=== PATIENT | male | born 1970 | race Caucasian/White ===

== ENCOUNTER 2024-07-05 13:44 | Observation (INO) | payer OTHER ==
--- NOTE | 2024-07-05 14:21 | ED ---
General Adult HPI - General Chief complaint: Chest Pain Stated complaint: Chest pain Time Seen by Provider: 07/05/24 13:51 Source: patient, RN notes reviewed Mode of arrival: ambulatory Limitations: no limitations - History of Present Illness Initial comments: Patient is a 54-year-old male present to the emergency department with concerns with chest discomfort. Onset of symptoms was prior to arrival. Patient was at [place]. Patient has been there for 3 days now secondary to crack cocaine use. No history of previous chest discomfort before. Discomfort was severe and felt somewhat sharp. There was radiation to the left arm. Discomfort is now minimal. Patient also had diffuse paresthesias. Patient did feel somewhat short of breath. No nausea. No history of similar symptoms previously. - Related Data Home Medications Medication Instructions Recorded Confirmed Aspirin EC [Ecotrin] 325 mg PO ONCE 07/05/24 07/05/24 Atorvastatin [Lipitor] 20 mg PO HS 07/05/24 07/05/24 Allergies Allergy/AdvReac Type Severity Reaction Status Date / Time bee venom protein (honey bee) Allergy Rash/Hives Verified 07/05/24 14:48 Review of Systems ROS Statement: Those systems with pertinent positive or pertinent negative responses have been documented in the HPI. ROS Other: All systems not noted in ROS Statement are negative. Constitutional: Denies: fever Eyes: Denies: eye pain ENT: Denies: ear pain Respiratory: Reports: as per HPI Cardiovascular: Reports: as per HPI, chest pain Gastrointestinal: Denies: abdominal pain Neurological: Denies: weakness Past Medical History Additional Past Medical History / Comment(s): High Cholestrol. Bleeding GI ulcer History of Any Multi-Drug Resistant Organisms: None Reported Additional Past Surgical History / Comment(s): plastic surgery to face Past Psychological History: No Psychological Hx Reported Smoking Status: Current every day smoker Past Alcohol Use History: None Reported Past Drug Use History: Cocaine, Marijuana General Exam Limitations: no limitations General appearance: alert, in no apparent distress Head exam: Present: normocephalic Eye exam: Present: normal appearance Neck exam: Present: normal inspection Respiratory exam: Present: normal lung sounds bilaterally. Absent: chest wall tenderness Cardiovascular Exam: Present: regular rate, normal rhythm, normal heart sounds Expanded Peripheral pulses: 2+: Radial (R), Radial (L), Posterior Tibialis (R), Posterior Tibialis (L) GI/Abdominal exam: Present: soft. Absent: tenderness Extremities exam: Present: normal inspection. Absent: pedal edema, calf te nderness Neurological exam: Present: alert Psychiatric exam: Present: normal affect, normal mood Skin exam: Present: normal color Course Vital Signs 07/05/24 13:45 Temperature 97.8 F Pulse Rate 84 Respiratory 18 Rate Blood Pressure 130/87 O2 Sat by Pulse 98 Oximetry EKG Findings - EKG Results: EKG: interpreted by ERMD, sinus rhythm, normal axis, normal QRS, normal ST/T Medical Decision Making - Medical Decision Making Was pt. sent in by a medical professional or institution (, PA, WOOD PLANER, urgent care, hospital, or skilled nursing...) When possible be specific @ -[facility] Did you speak to anyone other than the patient for history (EMS, parent, family, police, friend...)? What history was obtained from this source @ -No Did you review nursing and triage notes (agree or disagree)? Why? @ -I reviewed and agree with nursing and triage notes Were old charts reviewed (outside hosp., previous admission, EMS record, old EKG, old radiological studies, urgent care reports/EKG's, skilled nursing records)? Report findings @ -No old charts were reviewed Differential Diagnosis (chest pain, altered mental status, abdominal pain women, abdominal pain men, vaginal bleeding, weakness, fever, dyspnea, syncope, headache, dizziness, GI bleed, back pain, seizure, CVA, palpatations, mental health, musculoskeletal)? @ -Differential Chest Pain: Stable Angina, Unstable Angina, STEMI, NSTEMI Aortic Dissection, Pneumothorax, Musculoskeletal, Esophageal Spasm GERD, Cholecystitis, Pancreatitis, Zoster, this is not meant to be an all-inclusive list. EKG interpreted by me (3pts min.). @ -As above X-rays interpreted by me (1pt min.). @ -Chest x-ray with nonspecific findings CT interpreted by me (1pt min.). @ -None done U/S interpreted by me (1pt. min.). @ -None done What testing was considered but not performed or refused? (CT, X-rays, U/S, labs)? Why? @ -None What meds were considered but not given or refused? Why? @ -None Did you discuss the management of the patient with other professionals (professionals i.e. , PA, WOOD PLANER, lab, RT, psych nurse, social science analyst, afterschool, teacher, deputy juvenile officer, child support case officer)? Give summary @ -Case was discussed with Dr. Farias who will admit covering hospital call Was smoking cessation discussed for >3mins.? @ -No Was critical care preformed (if so, how long)? @ -No Were there social determinants of health that impacted care today? How? (Homele ssness, low income, unemployed, alcoholism, drug addiction, transportation, low edu. Level, literacy, decrease access to med. care, long-term, rehab)? @ -No Was there de-escalation of care discussed even if they declined (Discuss DNR or withdrawal of care, Hospice)? DNR status @ -No What co-morbidities impacted this encounter? (DM, HTN, Smoking, COPD, CAD, Cancer, CVA, ARF, Chemo, Hep., AIDS, mental health diagnosis, sleep apnea, morbid obesity)? @ -Family history of brothers with heart disease. Cocaine use Was patient admitted / discharged? Hospital course, mention meds given and route, prescriptions, significant lab abnormalities, going to OR and other pertinent info. @ -Patient presents with chest discomfort, initial evaluation unremarkable. Patient will be admitted with further testing and cardiac consult. Patient updated. Admission orders written. Undiagnosed new problem with uncertain prognosis? @ -No Drug Therapy requiring intensive monitoring for toxicity (Heparin, Nitro, I nsulin, Cardizem)? @ -No Were any procedures done? @ -No Diagnosis/symptom? @ -Chest pain Acute, or Chronic, or Acute on Chronic? @ -Acute Uncomplicated (without systemic symptoms) or Complicated (systemic symptoms)? @ -Default Side effects of treatment? @ -No Exacerbation, Progression, or Severe Exacerbation? @ -No Poses a threat to life or bodily function? How? (Chest pain, [place], [place], pneumonia, PE, COPD, DKA, ARF, appy, cholecystitis, CVA, Diverticulitis, Homicidal, Suicidal, threat to staff... and all critical care pts) @ -Threat to cardiac function - Lab Data Result diagrams: 07/05/24 14:35 07/05/24 14:35 Lab Results 07/05/24 07/05/24 07/05/24 Range/Units 14:35 14:35 14:35 WBC 8.08 (4.50-10.00) 10*3/uL RBC 4.72 (4.40-5.60) 10*6/uL Hgb 14.7 (13.0-17.0) g/dL Hct 42.3 (39.6-50.0) % MCV 89.6 (80.0-97.0) fL MCH 31.1 (27.0-32.0) pg MCHC 34.8 (32.0-37.0) g/dL Plt Count 258 (140-440) 10*3/uL MPV 9.6 (9.5-12.2) fL Immature Gran % (Auto) 0.5 % Neutrophils % 74.0 % Lymphocytes % 16.5 % Monocytes % 6.8 % Eosinophils % 1.2 % Basophils % 1.0 % Immature Gran # 0.04 (0.00-0.04) 10*3/uL Neutrophils # 5.98 (1.80-7.70) 10*3/uL Lymphocytes # 1.33 (0.90-5.00) 10*3/uL Monocytes # 0.55 (0.20-1.00) 10*3/uL Eosinophils # 0.10 (0.04-0.35) 10*3/uL Basophils # 0.08 (0.00-0.10) 10*3/uL PT 10.2 (10.0-12.5) sec INR 0.9 (<1.2) APTT 24.7 (22.0-30.0) sec D-Dimer 0.29 (<0.60) mg/L FEU Sodium 139 (137-145) mmol/L Potassium 4.1 (3.5-5.1) mmol/L Chloride 105 (98-107) mmol/L Carbon Dioxide 27 (22-30) mmol/L Anion Gap 7 mmol/L BUN 11 (9-20) mg/dL Creatinine 0.81 (0.66-1.25) mg/dL Est GFR (CKD-EPI)AfAm >90 (>60 ml/min/1.73 sqM) Est GFR (CKD-EPI)NonAf >90 (>60 ml/min/1.73 sqM) Glucose 93 (74-99) mg/dL Calcium 9.8 (8.4-10.2) mg/dL Magnesium 2.0 (1.6-2.3) mg/dL Total Bilirubin 0.4 (0.2-1.3) mg/dL AST 17 (17-59) U/L ALT 11 (4-49) U/L Alkaline Phosphatase 49 (38-126) U/L Troponin I (0.000-0.034) ng/mL Total Protein 6.1 L (6.3-8.2) g/dL Albumin 3.6 (3.5-5.0) g/dL Amylase 38 (30-110) U/L Lipase 167 (23-300) U/L / Range/Units 14:35 WBC (4.50-10.00) 10*3/uL RBC (4.40-5.60) 10*6/uL Hgb (13.0-17.0) g/dL Hct (39.6-50.0) % MCV (80.0-97.0) fL MCH (27.0-32.0) pg MCHC (32.0-37.0) g/dL Plt Count (140-440) 10*3/uL MPV (9.5-12.2) fL Immature Gran % (Auto) % Neutrophils % % Lymphocytes % % Monocytes % % Eosinophils % % Basophils % % Immature Gran # (0.00-0.04) 10*3/uL Neutrophils # (1.80-7.70) 10*3/uL Lymphocytes # (0.90-5.00) 10*3/uL Monocytes # (0.20-1.00) 10*3/uL Eosinophils # (0.04-0.35) 10*3/uL Basophils # (0.00-0.10) 10*3/uL PT (10.0-12.5) sec INR (<1.2) APTT (22.0-30.0) sec D-Dimer (<0.60) mg/L FEU Sodium (137-145) mmol/L Potassium (3.5-5.1) mmol/L Chloride (98-107) mmol/L Carbon Dioxide (22-30) mmol/L Anion Gap mmol/L BUN (9-20) mg/dL Creatinine (0.66-1.25) mg/dL Est GFR (CKD-EPI)AfAm (>60 ml/min/1.73 sqM) Est GFR (CKD-EPI)NonAf (>60 ml/min/1.73 sqM) Glucose (74-99) mg/dL Calcium (8.4-10.2) mg/dL Magnesium (1.6-2.3) mg/dL Total Bilirubin (0.2-1.3) mg/dL AST (17-59) U/L ALT (4-49) U/L Alkaline Phosphatase (38-126) U/L Troponin I <0.012 (0.000-0.034) ng/mL Total Protein (6.3-8.2) g/dL Albumin (3.5-5.0) g/dL Amylase (30-110) U/L Lipase (23-300) U/L Disposition Clinical Impression: Chest pain Disposition: ADMITTED IP TO THIS [facility] Is patient prescribed a controlled substance at d/c from ED?: No Referrals: None,Stated [Primary Care Provider] - 1-2 days Time of Disposition: 17:08
[2024-07-05] MEDS: ASPIRIN 81 MG PO STA (14:39)
[2024-07-05] MEDS: NITROGLYCERIN OINT 1 INCH/GM PACKET TOPICAL STA (14:39)
[2024-07-05 14:50] LABS: Basophils # (A) 0.08 10*3/uL (0.00-0.10); Eosinophils % (A) 1.2 %; HCT 42.3 % (39.6-50.0); HGB 14.7 g/dL (13.0-17.0); Lymphocytes # (A) 1.33 10*3/uL (0.90-5.00); Lymphocytes % (A) 16.5 %; MCH 31.1 pg (27.0-32.0); MCHC 34.8 g/dL (32.0-37.0); MCV 89.6 fL (80.0-97.0); Mean Platelet Volume 9.6 fL (9.5-12.2); Monocytes # (A) 0.55 10*3/uL (0.20-1.00); Monocytes % (A) 6.8 %; Neutrophils # (A) 5.98 10*3/uL (1.80-7.70); Platelet Count 258 10*3/uL (140-440); RBC 4.72 10*6/uL (4.40-5.60); RDW 12.1 % (11.5-14.5); WBC 8.08 10*3/uL (4.50-10.00)
[2024-07-05 15:05] LABS: ALT 11 U/L (4-49); African American GFR (CKD) >90 (>60 ml/min/1.73 sqM); Albumin 3.6 g/dL (3.5-5.0); Amylase 38 U/L (30-110); Anion Gap 7 mmol/L; Blood Urea Nitrogen 11 mg/dL (9-20); Calcium 9.8 mg/dL (8.4-10.2); Carbon Dioxide 27 mmol/L (22-30); Chloride 105 mmol/L (98-107); Glucose 93 mg/dL (74-99); Lipase 167 U/L (23-300); Non-African American GFR(CKD) >90 (>60 ml/min/1.73 sqM); Sodium 139 mmol/L (137-145); Total Bilirubin 0.4 mg/dL (0.2-1.3); Total Protein 6.1 g/dL (6.3-8.2)
[2024-07-05 15:08] LABS: AST 17 U/L (17-59); Potassium 4.1 mmol/L (3.5-5.1)
[2024-07-05 15:09] LABS: Alkaline Phosphatase 49 U/L (38-126)
[2024-07-05 15:11] LABS: INR 0.9 (<1.2); Partial Thromboplastin Time 24.7 sec (22.0-30.0); Prothrombin Time 10.2 sec (10.0-12.5)
--- NOTE | 2024-07-05 15:12 | XR ---
EXAMINATION TYPE: XR chest 2V DATE OF EXAM: 07/05/2024 3:08 PM COMPARISON: None CLINICAL INDICATION: Male, 54 years old with history of Chest Pain, , TECHNIQUE: Frontal and lateral views FINDINGS: The heart is normal size. Aorta and pulmonary vascularity are normal. Mild patchy lower lung densities. Mild hyperinflation. No pleural effusion. IMPRESSION: COPD. Mild patchy atelectasis versus minimal early infiltrates at the lower lungs. [facility], Workstation: [facility], 07/05/2024 3:09 PM
[2024-07-05] MEDS ORDERED: NITROGLYCERIN SL TABS 0.4 MG TAB SUBLINGUAL PRN (17:08)
[2024-07-05] MEDS: NITROGLYCERIN OINT 1 INCH/GM PACKET TOPICAL SCH (19:06)
[2024-07-05] MEDS: ATORVASTATIN 20 MG TAB PO SCH (20:17)
[2024-07-06 01:40] LABS: Amphetamine Screen,Urine Not Detected (NotDetected); Barbiturate Screen,Urine Not Detected (NotDetected); Benzodiazepines Screen,Urine Not Detected (NotDetected); Cocaine Screen,Urine Detected (NotDetected); Methadone Screen, Urine Not Detected (NotDetected); Opiate Screen,Urine Not Detected (NotDetected); Oxycodone Screen, Urine Not Detected (NotDetected); Phencyclidine Screen,Urine Not Detected (NotDetected); Tricyclic Antidepressant,Urine Not Detected (NotDetected); Urn Cannabinoid Scrn Not Detected (NotDetected)
--- NOTE | 2024-07-06 02:48 | HP ---
HISTORY AND PHYSICAL CHIEF COMPLAINT: Chest pain. HISTORY OF PRESENT ILLNESS: This 54-year-old gentleman with a past medical history of multiple medical problems including cocaine addiction, obesity. The patient is receiving rehab in , is complaining of left-sided chest pain, which is radiating to the left arm. The patient reports the pain as sharp in character. The initial workup was negative, but however, the patient had history of myocardial infarction in brother at age of 50. There is no history of fever, rigors, chills at this time. PAST MEDICAL HISTORY: History of hyperlipidemia, bleeding, gastric ulcer. Rest of the history and chart is also reviewed. HOME MEDICATIONS: Ecotrin, Lipitor. ALLERGIES: Bee venom. FAMILY HISTORY: As mentioned earlier. SOCIAL HISTORY: Cocaine, marijuana smoking. REVIEW OF SYSTEMS: A 14-point review of systems is negative except as mentioned earlier. PHYSICAL EXAMINATION: VITAL SIGNS: Pulse is 84, blood pressure 138/70, respirations 18. HEENT: Conjunctivae normal. NECK: No jugular venous distention. CARDIOVASCULAR: S1 and S2, muffled. ABDOMEN: Soft, nontender. EXTREMITIES: Legs, no edema, no cyanosis. NERVOUS SYSTEM: No focal deficits. LABORATORY DATA: Labs are reviewed. EKG shows no acute changes. ASSESSMENT: 1. Chest pain, possible unstable angina. 2. Positive cocaine. 3. Hyperlipidemia. 4. History of bleeding GI. 5. History of nicotine dependence. 6. Family history of premature coronary artery disease. RECOMMENDATION: This 54-year-old gentleman presented with multiple complex medical issues. We will monitor the patient closely. Continue the current and treatment, otherwise continue with antiplatelet agents. I would also recommend small dose of beta blockers and closely follow with Cardiology. The patient will need further testing including stress test. Prognosis guarded. Further recommendations to follow. Continue with a substance abuse rehab. MMODL / IJN: [id number] / MTDD
[2024-07-06 08:22] LABS: Basophils # (A) 0.05 10*3/uL (0.00-0.10); Basophils % (A) 0.6 %; Eosinophils # (A) 0.09 10*3/uL (0.04-0.35); Eosinophils % (A) 1.1 %; HCT 46.7 % (39.6-50.0); HGB 15.9 g/dL (13.0-17.0); Lymphocytes # (A) 1.16 10*3/uL (0.90-5.00); Lymphocytes % (A) 14.1 %; MCH 30.3 pg (27.0-32.0); Mean Platelet Volume 9.1 fL (9.5-12.2); Monocytes # (A) 0.53 10*3/uL (0.20-1.00); Monocytes % (A) 6.5 %; Neutrophils # (A) 6.36 10*3/uL (1.80-7.70); Neutrophils % (A) 77.5 %; Platelet Count 276 10*3/uL (140-440); RBC 5.25 10*6/uL (4.40-5.60); RDW 12.2 % (11.5-14.5); WBC 8.21 10*3/uL (4.50-10.00)
[2024-07-06 08:48] LABS: African American GFR (CKD) >90 (>60 ml/min/1.73 sqM); Anion Gap 9 mmol/L; Blood Urea Nitrogen 11 mg/dL (9-20); Calcium 9.4 mg/dL (8.4-10.2); Carbon Dioxide 21 mmol/L (22-30); Chloride 110 mmol/L (98-107); Glucose 96 mg/dL (74-99); Non-African American GFR(CKD) >90 (>60 ml/min/1.73 sqM); Potassium 4.5 mmol/L (3.5-5.1); Sodium 140 mmol/L (137-145)
[2024-07-06] MEDS: ASPIRIN 325 MG TAB PO SCH (09:04)
--- NOTE | 2024-07-06 09:40 | P.CRDCN ---
History of Present Illness Consult date: 07/06/24 History of present illness: This is a 54-year-old gentleman with a past medical history significant for smoking and cocaine use currently he is at the rehab facility presented to the hospital complaining of chest discomfort. Patient was in his usual state of health till yesterday when he started experiencing intermittent episode of chest discomfort last for few seconds only in the middle of the chest with no radiation to the arms or neck or shoulders or back and no associated symptoms of shortness of breath or sweating or dizziness or lightheadedness or any feeling of heart racing or fluttering. No history of CAD or heart failure or cardiac arrhythmia. He underwent further evaluation including an EKG showing sinus mechanism with no significant changes and cardiac enzymes came in to be unremarkable and D-dimer came to be unremarkable. Currently his chest pain- free. The physical examination is remarkable for regular rhythm with a soft systolic murmur and clear breathing sounds bilaterally and no edema was noted in the lower extremities Assessment Atypical chest discomfort History of smoking History of cocaine use Positive urine analysis for cocaine Plan Continue with the current medical regimen Acute coronary event was ruled out Pulmonary embolism was ruled out Obviously the patient need to have a cardiac workup to rule out severe underlying CAD Smoking cessation Follow-up with the echocardiogram Further recommendation to follow the echo Past Medical History Additional Past Medical History / Comment(s): High Cholestrol. Bleeding GI ulcer History of Any Multi-Drug Resistant Organisms: None Reported Additional Past Surgical History / Comment(s): plastic surgery to face Past Psychological History: No Psychological Hx Reported Smoking Status: Current every day smoker Past Alcohol Use History: None Reported Past Drug Use History: Cocaine, Marijuana Medications and Allergies Home Medications Medication Instructions Recorded Confirmed Type Aspirin EC [Ecotrin] 325 mg PO ONCE 07/05/24 07/05/24 History Atorvastatin [Lipitor] 20 mg PO HS 07/05/24 07/05/24 History Allergies Allergy/AdvReac Type Severity Reaction Status Date / Time bee venom protein (honey bee) Allergy Rash/Hives Verified 07/05/24 14:48 Physical Exam Vitals: Vital Signs Temp Pulse Pulse Resp BP BP Pulse Ox 07/06/24 09:06 98.2 F 77 15 138/90 97 07/06/24 02:00 73 16 124/94 96 07/06/24 00:37 96 07/06/24 00:25 97.7 F 66 16 129/84 97 07/05/24 23:53 97.8 F 84 20 120/90 96 07/05/24 22:35 72 140/91 95 07/05/24 19:00 126/91 07/05/24 18:11 98.0 F 82 17 129/82 97 07/05/24 16:11 98.0 F 86 17 128/76 97 07/05/24 14:11 97.8 F 83 15 130/80 96 07/05/24 13:45 97.8 F 84 83 18 130/87 98 Intake and Output 07/05/24 07/06/24 07/06/24 22:59 06:59 14:59 Other: Voiding Method Urinal Results 07/06/24 07:49 07/06/24 07:49 Cardiac Enzymes 07/05/24 07/05/24 07/05/24 Range/Units 14:35 14:35 17:25 AST 17 (17-59) U/L Troponin I <0.012 <0.012 (0.000-0.034) ng/mL 07/05/24 Range/Units 20:34 AST (17-59) U/L Troponin I <0.012 (0.000-0.034) ng/mL Coagulation 07/05/24 Range/Units 14:35 PT 10.2 (10.0-12.5) sec APTT 24.7 (22.0-30.0) sec CBC 07/05/24 07/06/24 Range/Units 14:35 07:49 WBC 8.08 8.21 (4.50-10.00) 10*3/uL RBC 4.72 5.25 (4.40-5.60) 10*6/uL Hgb 14.7 15.9 (13.0-17.0) g/dL Hct 42.3 46.7 (39.6-50.0) % Plt Count 258 276 (140-440) 10*3/uL Comprehensive Metabolic Panel 07/05/24 07/06/24 Range/Units 14:35 07:49 Sodium 139 140 (137-145) mmol/L Potassium 4.1 4.5 (3.5-5.1) mmol/L Chloride 105 110 H (98-107) mmol/L Carbon Dioxide 27 21 L (22-30) mmol/L BUN 11 11 (9-20) mg/dL Creatinine 0.81 0.60 L (0.66-1.25) mg/dL Glucose 93 96 (74-99) mg/dL Calcium 9.8 9.4 (8.4-10.2) mg/dL AST 17 (17-59) U/L ALT 11 (4-49) U/L Alkaline Phosphatase 49 (38-126) U/L Total Protein 6.1 L (6.3-8.2) g/dL Albumin 3.6 (3.5-5.0) g/dL Current Medications Generic Name Dose Route Start Last Admin Trade Name Freq PRN Reason Stop Dose Admin Aspirin 325 mg 07/06/24 09:00 07/06/24 09:04 Aspirin 325 Mg Tab PO 325 mg DAILY ALICE Administration Atorvastatin Calcium 20 mg 07/05/24 21:00 07/05/24 20:17 Atorvastatin 20 Mg Tab PO 20 mg HS ALICE Administration Nitroglycerin 0.4 mg 07/05/24 17:08 Nitroglycerin Sl Tabs 0.4 Mg Tab SUBLINGUAL Q5M PRN Chest Pain Nitroglycerin 0.5 inch 07/05/24 19:00 07/06/24 06:14 Nitroglycerin Oint 1 Inch/Gm Packet TOPICAL 0.5 inch Q6HR ALICE Administration Intake and Output 07/05/24 07/06/24 07/06/24 22:59 06:59 14:59 Other: Voiding Method Urinal 07/06/24 07:49 07/06/24 07:49
[2024-07-06 13:19] LABS: LDL Cholesterol,Calculated 75.6 mg/dL (0.0-131.0)
[2024-07-06] MEDS: PANTOPRAZOLE 40 MG/10 ML VIAL IVP SCH (15:34)
[2024-07-06] MEDS: LORazepam 0.5 MG TAB PO PRN (15:34)
[2024-07-06] MEDS: ACETAMINOPHEN TAB 325 MG TAB PO PRN (18:12)
[2024-07-06] MEDS: HEPARIN SODIUM,PORCINE 5,000 UNIT/ML 1 ML VIAL SQ SCH (20:45)
--- NOTE | 2024-07-07 01:39 | PN ---
PROGRESS NOTE DATE OF SERVICE: 07/06/2024 SUBJECTIVE: This 54-year-old gentleman admitted with chest pain, also had history of cocaine. No fever. No cough. The pain was radiating to the left arm. The patient also had history of premature coronary artery disease in the family also. PHYSICAL EXAMINATION: VITAL SIGNS: The pulse is 77, blood pressure 139/74, respirations 16. CHEST: Clear to auscultation. CARDIOVASCULAR: S1 and S2. ABDOMEN: Soft. LABORATORY DATA: Reviewed. ASSESSMENT: 1. Chest pain, possible unstable angina. Myocardial infarction ruled out. 2. Positive cocaine. 3. Hyperlipidemia. 4. History of gastrointestinal bleed. 5. History of nicotine dependence. 6. Family history of premature coronary artery disease. RECOMMENDATIONS: Recommend to continue current management and continue with antiplatelet agents. Guarded prognosis because of multiple complex medical issues and further recommendations to follow. MMODL / IJN: [id number] /
[2024-07-07 09:34] LABS: Basophils # (A) 0.08 X 10*3/uL (0.00-0.10); Basophils % (A) 1.3 %; Eosinophils # (A) 0.13 X 10*3/uL (0.04-0.35); HCT 49.4 % (39.6-50.0); HGB 16.2 g/dL (13.0-17.0); Lymphocytes # (A) 1.52 X 10*3/uL (0.90-5.00); Lymphocytes % (A) 23.8 %; MCH 30.1 pg (27.0-32.0); MCHC 32.8 g/dL (32.0-37.0); MCV 91.8 FL (80.0-97.0); Mean Platelet Volume 9.9 FL (9.5-12.2); Monocytes # (A) 0.57 X 10*3/uL (0.20-1.00); Monocytes % (A) 8.9 %; NRBC Per 100 WBC 0 X 10*3/uL (0.00-0.01); Neutrophils # (A) 4.06 X 10*3/uL (1.80-7.70); Neutrophils % (A) 63.7 %; Platelet Count 268 X 10*3/uL (140-440); RBC 5.38 X 10*6/uL (4.40-5.60); RDW 12.3 % (11.5-14.5); WBC 6.38 X 10*3/uL (4.50-10.00)
[2024-07-07 10:00] LABS: ALT 10 U/L (10-49); AST 13 U/L (14-35); Albumin 3.6 g/dL (3.8-4.9); Alkaline Phosphatase 64 U/L (41-126); BUN/Creat Ratio 16.71 Ratio (12.00-20.00); Blood Urea Nitrogen 11.7 mg/dL (9.0-27.0); Calcium 9.2 mg/dL (8.7-10.3); Carbon Dioxide 23.3 mmol/L (21.6-31.8); Chloride 107 mmol/L (96-109); Globulin 2.4 g/dL (1.6-3.3); Glucose 107 mg/dL (70-110); Potassium 4.2 mmol/L (3.5-5.5); Sodium 139 mmol/L (135-145); Total Bilirubin 0.2 mg/dL (0.3-1.2)
--- NOTE | 2024-07-07 10:06 | P.PN ---
Subjective Progress Note Date: 07/07/24 This is a 54-year-old gentleman with a past medical history significant for smoking and cocaine use currently he is at the rehab facility presented to the hospital complaining of chest discomfort. Patient was in his usual state of health till yesterday when he started experiencing intermittent episode of chest discomfort last for few seconds only in the middle of the chest with no radiation to the arms or neck or shoulders or back and no associated symptoms of shortness of breath or sweating or dizziness or lightheadedness or any feeling of heart racing or fluttering. No history of CAD or heart failure or cardiac arrhythmia. He underwent further evaluation including an EKG showing sinus mechanism with no significant changes and cardiac enzymes came in to be unremarkable and D-dimer came to be unremarkable. Currently his chest pain- free. The physical examination is remarkable for regular rhythm with a soft systolic murmur and clear breathing sounds bilaterally and no edema was noted in the lower extremities July 07, 2024 The patient was seen and evaluated this morning and he is asymptomatic. He is hemodynamically stable as well. The echo still pending. The physical examination is remarkable for regular rhythm with a soft systolic murmur and clear beating sounds bilaterally and no edema was noted in the lower extremities. Assessment Atypical chest discomfort History of smoking History of cocaine use Positive urine analysis for cocaine Plan Continue with the current medical regimen Acute coronary event was ruled out Pulmonary embolism was ruled out Obviously the patient need to have a cardiac workup to rule out severe underlying CAD Smoking cessation Follow-up with the echocardiogram Further recommendation to follow the echo Objective - Vital Signs Vital signs: Vital Signs Temp 98.1 F 07/07/24 07:00 Pulse 82 07/07/24 07:00 Resp 17 07/07/24 07:00 BP 131/90 07/07/24 07:00 Pulse Ox 99 07/07/24 07:00 FiO2 Intake & Output 07/06/24 07/07/24 07/07/24 18:59 06:59 18:59 Intake Total 118 Balance 118 Weight 65.771 kg Intake: Oral 118 Other: Voiding Method Toilet Toilet Toilet # Voids 2 # Bowel Movements 1 - Labs CBC & Chem 7: 07/07/24 05:33 07/07/24 05:33 Labs: Abnormal Lab Results - Last 24 Hours (Table) 05/17/25 05/18/25 Range/Units 07:49 05:33 Total Bilirubin 0.2 L (0.3-1.2) mg/dL AST 13 L (14-35) U/L Total Protein 6.0 L (6.2-8.2) g/dL Albumin 3.6 L (3.8-4.9) g/dL Albumin/Globulin Ratio 1.50 L (1.60-3.17) Ratio Triglycerides 150.00 H (0.00-149.00) mg/dL
--- NOTE | 2024-07-07 13:44 | CA ---
Transthoracic Echo Report Name: Sav Van Age: 54 Gender: M : 1970 Exam Date: 07/06/2024 14:49 Exam Location: [facility] Ht (in): 64 Wt (lb): 145 Ordering Physician: Scott Newsome MD ([id number]) Attending/Referring Phys: [place]beater Deena Cash RDCS Procedure CPT: Indications: CP Cardiac Hx: Technical Quality: Technically difficult study Contrast 1: Total Dose (mL): Contrast 2: Total Dose (mL): MEASUREMENTS (Male / Female) Normal Values 2D ECHO LV Diastolic Diameter PLAX 4.7 cm 4.2 - 5.9 / 3.9 - 5.3 cm LV Systolic Diameter PLAX 3.2 cm IVS Diastolic Thickness 1.0 cm 0.6 - 1.0 / 0.6 - 0.9 cm LVPW Diastolic Thickness 0.6 cm 0.6 - 1.0 / 0.6 - 0.9 cm LV Relative Wall Thickness 0.3 LVOT Diameter 2.3 cm LA Volume 35.4 cm??? 18 - 58 / 22 - 52 cm??? LA Volume Index 20.4 cm???/m??? 16 - 28 cm???/m??? DOPPLER AV Peak Velocity 84.5 cm/s AV Peak Gradient 2.9 mmHg AV Mean Velocity 63.9 cm/s AV Mean Gradient 1.8 mmHg AV Velocity Time Integral 12.8 cm LVOT Peak Velocity 95.2 cm/s LVOT Peak Gradient 3.6 mmHg LVOT Velocity Time Integral 15.5 cm LVOT Stroke Volume 66.6 cm??? LVOT Stroke Volume Index 39.0 ml/m??? LVOT Cardiac Index 3224.2 cm???/min???m??? AV Area Cont Eq vti 5.2 cm??? AV Area Cont Eq pk 4.8 cm??? MV Area PHT 4.5 cm??? Mitral E Point Velocity 31.1 cm/s Mitral A Point Velocity 50.4 cm/s Mitral E to A Ratio 0.6 MV Deceleration Time 169.8 ms PV Peak Velocity 97.1 cm/s PV Peak Gradient 3.8 mmHg FINDINGS Left Ventricle Left ventricular ejection fraction is estimated at 55-60 %. Left ventricular cavity size normal. Left ventricular wall thickness normal. No obvious regional wall motion abnormalities. Right Ventricle Normal right ventricular size and function. Unable to estimate the right ventricular systolic pressure. Right Atrium Normal right atrial size. Left Atrium Normal left atrial size. Mitral Valve Structurally normal mitral valve. No mitral stenosis, regurgitation or prolapse. Aortic Valve Trileaflet aortic valve. No aortic valve stenosis or regurgitation. Tricuspid Valve Structurally normal tricuspid valve. No tricuspid stenosis, regurgitation or prolapse. Pulmonic Valve Structurally normal pulmonic valve. No pulmonic stenosis. No pulmonic regurgitation. Pericardium No pericardial effusion. Aorta Aortic annulus normal. CONCLUSIONS Technically difficult study for interpretation Normal LV systolic function No significant valvular abnormalities The pulmonary artery systolic pressure was not calculated No pericardial effusion Previewed by: Dr. Scott Newsome MD (Electronically Signed) Final Date: 07 Jul 2024 13:43
--- NOTE | 2024-07-08 03:12 | PN ---
PROGRESS NOTE DATE OF SERVICE: 07/07/2024 SUBJECTIVE: This is a 54-year-old gentleman, admitted with chest pain, is scheduled to have a stress test tomorrow. His 2D echo showed no acute abnormality. OBJECTIVE: VITAL SIGNS: Pulse is 88, blood pressure 135/87, respirations 18. CHEST: Clear to auscultation. CARDIOVASCULAR: S1, S2. ABDOMEN: Soft. LABORATORY DATA: Noted. ASSESSMENT: 1. Chest pain, possible unstable angina. Myocardial infarction ruled out. 2. Positive cocaine. 3. Hyperlipidemia. 4. History of GI bleed. 5. History of nicotine dependence. 6. Family history of premature coronary artery disease. RECOMMENDATIONS AND DISCUSSION: I recommend to continue current medications, continue symptomatic treatment. Otherwise, at this time, closely monitor. N.p.o. past midnight. Stress test in the morning. Guarded prognosis. Further recommendations to follow. MMODL / IJN: [id number] /
[2024-07-08 04:10] VITALS: RESP 18
[2024-07-08] MEDS: ASPIRIN 81 MG PO SCH (08:47)
--- NOTE | 2024-07-08 11:06 | P.PN ---
Subjective HISTORY OF PRESENT ILLNESS: This is a 54-year-old gentleman with a past medical history significant for smoking and cocaine use currently he is at the rehab facility presented to the hospital complaining of chest discomfort. Patient was in his usual state of health till yesterday when he started experiencing intermittent episode of chest discomfort last for few seconds only in the middle of the chest with no radiation to the arms or neck or shoulders or back and no associated symptoms of shortness of breath or sweating or dizziness or lightheadedness or any feeling of heart racing or fluttering. No history of CAD or heart failure or cardiac arrhythmia. He underwent further evaluation including an EKG showing sinus mechanism with no significant changes and cardiac enzymes came in to be unremarkable and D-dimer came to be unremarkable. Currently his chest pain- free. The physical examination is remarkable for regular rhythm with a soft systolic murmur and clear breathing sounds bilaterally and no edema was noted in the lower extremities July 07, 2024 The patient was seen and evaluated this morning and he is asymptomatic. He is hemodynamically stable as well. The echo still pending. The physical examination is remarkable for regular rhythm with a soft systolic murmur and clear beating sounds bilaterally and no edema was noted in the lower extremities. 07/08/2024 Patient examined this morning at bedside. Patient currently denies any chest pain or pressure. He denies any shortness of breath. He states since he has b een in the hospital he has not had any further episodes of chest pain. He describes the chest pain that brought him in as a stabbing sensation to the middle of his chest with numbness down his left arm. He does report that he was using cocaine on a daily basis and thinks his symptoms were from withdrawal. Echocardiogram completed revealing ejection fraction 55 to 60% with no significant valvular abnormalities. PHYSICAL EXAM: VITAL SIGNS: Reviewed. GENERAL: Well-developed in no acute distress. NECK: Supple. No JVD or thyromegaly LUNGS: Respirations even and unlabored. Lungs essentially clear to auscultation bilaterally. HEART: Regular rate and rhythm. S1 and S2 heard. EXTREMITIES: Normal range of motion. No clubbing or cyanosis. Peripheral pulses intact. No lower extremity edema ASSESSMENT: Chest pain, atypical, troponin negative x 3 Cocaine use Nicotine dependence PLAN: Add aspirin 81 mg daily Continue atorvastatin 20 mg at night Patient encouraged to abstain from cocaine Patient may be discharged back to [facility] today from a cardiac standpoint Patient is scheduled for an outpatient stress test at the hospital on 07/18/24 at 9:15 in the morning We will sign off. Please reconsult if needed. Nurse practitioner note has been reviewed by physician. Signing provider agrees with the documented findings, assessment, and plan of care documented by STICKER MACHINE OPERATOR as a scribe. Objective - Vital Signs Vital signs: Vital Signs Temp 98.0 F 07/08/24 07:00 Pulse 82 07/08/24 07:00 Resp 18 07/08/24 07:00 BP 112/76 07/08/24 07:00 Pulse Ox 96 07/08/24 08:39 FiO2 Intake & Output 07/07/24 07/08/24 07/08/24 18:59 06:59 18:59 Intake Total 796 118 Balance 796 118 Intake: Oral 796 118 Other: Voiding Method Toilet # Voids 1 1 - Labs CBC & Chem 7: 07/07/24 05:33 07/07/24 05:33
[2024-07-08 15:42] VITALS: BP 136/86; PULSE 99; TEMP 98.3
--- NOTE | 2024-07-12 00:47 | P.DS ---
Providers Date of admission: 07/05/24 17:09 Expected date of discharge: 07/08/24 Attending physician: Amelia Farias Consults: 07/05/24 17:08 Consult Physician Urgent Consulting Provider: Scott Newsome Consult Reason/Comments: cp Do you want consulting provider notified?: Yes Primary care physician: Stated None Hospital Course: Final diagnosis Chest pain, possible unstable angina, myocardial infarction ruled out Positive cocaine Hyperlipidemia History of GI bleed History of nicotine dependence Significant family history of premature coronary artery disease GI prophylaxis DVT prophylaxis Full code Discharge disposition Patient is being discharged in a stable condition with guarded prognosis to [facility] for continued inpatient substance abuse rehab. Patient will f ollow-up with his primary care provider as well as cardiology in the outpatient setting upon discharge. Patient is to continue with current medications and schedule outpatient stress testing as scheduled. Total time taken is greater than 35 minutes. Hospital course This is a 54-year-old male who was recently admitted from [facility] with chest pain, [place] ruled out with possible unstable angina. Patient is at [facility] rehab for cocaine use and UDS was positive for cocaine. Patient with significant history of continued ongoing nicotine dependence along with hyperlipidemia and strong family history of premature coronary artery disease was evaluated by cardiology recommending maximizing medical management with completion of rehab and abstinence from any illicit drug use with outpatient follow-up stress testing and further intervention. Patient has been cleared by cardio and would like to return to [facility]. No further chest discomfort noted. Please refer to cardiology notes for further HPI. Currently no reports of chest pain, shortness of breath, or palpitations. Patient is afebrile. No reports of nausea or vomiting and patient is tolerating diet. Patient will be discharged back to [facility] today. Guarded prognosis Physical exam: Gen: This is a 54-year-old male who is awake, alert oriented x 3, well- developed, thin built, appears older than stated age HEENT: Head is atraumatic, normocephalic. Pupils equal, round. Sclerae is anicteric. NECK: Supple. No JVD. No lymphadenopathy. No thyromegaly. LUNGS: Diminished breath sounds bilaterally otherwise clear to auscultation. No wheezes or rhonchi. No intercostal retractions. HEART: Regular rate and rhythm. No murmur. ABDOMEN: Soft. Thin bowel sounds are present. No masses. No tenderness. EXTREMITIES: No pedal edema. No calf tenderness. NEUROLOGICAL: Patient is awake, alert and oriented x3. Cranial nerves 2 through 12 are grossly intact. Please refer to medication reconciliation sheet for a list of medications. The impression and plan of care has been dictated by Michelle Muñoz, Nurse Practitioner as directed. Dr. Jarrett MD I have performed a history and examination and MDM of this patient, discussed the same with the dictator, and agree with the dictator's assessment and plan as written ,documented as a scribe. Based on total visit time, I have performed more than 50% of the visit. Patient Condition at Discharge: Fair Plan - Discharge Summary New Discharge Prescriptions: New Nitroglycerin Sl Tabs [Nitrostat] 0.4 mg SUBLINGUAL Q5M PRN #20 tab PRN Reason: Chest Pain Aspirin 81 mg PO DAILY #30 tab Acetaminophen Tab [Tylenol] 650 mg PO Q6HR PRN tab PRN Reason: Fever And/ Or Pain Continue Atorvastatin [Lipitor] 20 mg PO HS Discontinued Aspirin EC [Ecotrin] 325 mg PO ONCE Discharge Medication List Atorvastatin [Lipitor] 20 mg PO HS 07/05/24 [History] Acetaminophen Tab [Tylenol] 650 mg PO Q6HR PRN tab 07/08/24 [Rx] Aspirin 81 mg PO DAILY #30 tab 07/08/24 [Rx] Nitroglycerin Sl Tabs [Nitrostat] 0.4 mg SUBLINGUAL Q5M PRN #20 tab 07/08/24 [Rx] Follow up Appointment(s)/Referral(s): None,Stated [Primary Care Provider] - 1-2 days Patient Instructions/Handouts: Chest Pain (DC) Activity/Diet/Wound Care/Special Instructions: Stress test scheduled at [facility] on 07/18/24 at 9:15 am, needs to be present at 9:00am for registration. Discharge/Stand Alone Forms: [facility] [place], Who Do I Call?, Community Resources, Outpatient Counseling, Inp Substance Abuse Facilities, Area PCPs Discharge Disposition: OTHER INSTITUTION NOT DEFINED
== END 2024-07-08 16:46 | disposition other institution (70) ==
LOC: EC 13:44 → INTOOBSV 17:09 → 6NMEDSUR 17:09
PROVIDERS: ADMIT Hospitalist; ATTEND Hospitalist
DX: R07.89 Other chest pain (principal); E78.00 Pure hypercholesterolemia, unspecified; F17.200 Nicotine dependence, unspecified, uncomplicated; E66.9 Obesity, unspecified; Z68.24 Body mass index [BMI] 24.0-24.9, adult; Z87.11 Personal history of peptic ulcer disease; Z79.899 Other long term (current) drug therapy; Z82.49 Family history of ischemic heart disease and other diseases of the circulatory system
CPT/HCPCS: 96376 ×2; 96372 ×2; 96374; 99285; 36415; 94760; 93005 ×2; 93306; 85379; 80061; 80053 ×2; 80048; 82150; 83690; 83735; 84484; 85025 ×3; 85610; 85730; 80306; 71046; G0378 ×4; J1644 ×2; J2470 ×2